=== PATIENT | male | born 1985 | race Caucasian/White ===

== ENCOUNTER 2018-08-14 16:04 | Outpatient (REF) | payer BC, SELFPAY ==
[2018-08-14 21:06] LABS: Absolute Basophil Count 0.01 k/cumm (0.0-0.2); Absolute Eosinophil Count 0.05 k/cumm (0.0-0.7); Absolute Lymphocyte Count 1.59 k/cumm (1.2-3.4); Absolute Monocyte Count 0.53 k/cumm (0.11-0.7); Absolute Neutrophil Count 2.43 k/cumm (1.2-6.7); Basophils % 0.2; Eosinophils % 1.1; HCT 40.5 % (40.0-50.0); HGB 13.9 g/dL (13.5-17.5); Lymphocytes % 34.5; Mean Corp. HGB Concentration 34.3 g/dL (32.0-36.0); Mean Corpuscular Hemoglobin 29.4 pg (27.0-33.0); Mean Corpuscular Volume 85.8 fL (80-95); Mean Platelet Volume 10.4 fL (8.0-11.0); Monocytes % 11.5; Neutrophils % 52.7; Platelet Count 165 x1000/uL (130-400); RBC 4.72 m/cumm (4.50-6.00); RBC Distribution Width 12.1 % (11.8-14.1); White Blood Cell Count 4.61 k/cumm (4.4-10.8)
[2018-08-14 21:15] LABS: ALT 34 U/L (12-78); AST 25 U/L (15-37); Albumin 4.3 g/dL (3.4-5.0); Alkaline Phosphatase 65 U/L (46-116); Anion Gap 10.2 mmol/L (3-11); BUN 18 mg/dL (7-18); Bilirubin, Total 0.2 mg/dL (0.2-1.0); CO2 26.8 mmol/L (21.0-32.0); CREATININE 0.91 mg/dL (0.70-1.30); Chloride 105 mmol/L (98-107); Glucose 96 mg/dL (70-100); Lipase 103 U/L (73-393); Potassium 3.9 mmol/L (3.5-5.1); Sodium 142 mmol/L (136-145)
[2018-08-14 21:23] LABS: Calcium 8.9 mg/dL (8.5-10.1)
[2018-08-16 11:59] LABS: IgA 118 mg/dL (85-499); Interpretation SEE COMMENTS; Tissue Transglutaminase IgA <1.2 U/mL (<4.0)
== END 2018-08-14 16:24 ==
LOC: NCHCN 16:04
PROVIDERS: PCP Internal Medicine; Visit Provider Internal Medicine
DX: R10.84 Generalized abdominal pain (principal); R19.4 Change in bowel habit; R14.0 Abdominal distension (gaseous)
CPT/HCPCS: 80053; 82784; 83516; 83690; 85025

== ENCOUNTER 2018-08-15 13:43 | Outpatient (REF) | payer BC, SELFPAY | END 2018-08-15 14:03 | LOC: LBN 13:43 | PROVIDERS: PCP Internal Medicine; Visit Provider Internal Medicine | DX: R19.4 Change in bowel habit (principal); R14.0 Abdominal distension (gaseous); R10.84 Generalized abdominal pain | CPT/HCPCS: 82272; 82710; 83630 ==

== ENCOUNTER 2018-12-18 12:02 | Outpatient (REF) | payer BC, SELFPAY | END 2018-12-18 12:22 | LOC: LBN 12:02 | PROVIDERS: PCP Internal Medicine | DX: R10.9 Unspecified abdominal pain (principal); G89.29 Other chronic pain; K58.9 Irritable bowel syndrome, unspecified | CPT/HCPCS: 87324 ==

== ENCOUNTER 2018-12-21 16:12 | Outpatient (REF) | payer BC, SELFPAY | END 2018-12-21 16:32 | LOC: LBO 16:12 | PROVIDERS: PCP Internal Medicine | DX: R10.9 Unspecified abdominal pain (principal); G89.29 Other chronic pain; K58.9 Irritable bowel syndrome, unspecified | CPT/HCPCS: 87329 ==

== ENCOUNTER 2019-07-13 12:18 | Emergency (ER) | payer BC, SELFPAY ==
--- NOTE | 2019-07-13 12:20 | W.ED.GENAD ---
Discharge Plan Disposition Patient Disposition: HOME Condition: Improving Discharge Details Chief Complaint: Headache Clinical Impression: Migraine Primary Care Provider: Ronak Quiroz ED Provider: Amira Pabon Home Meds and New Rx's Prescriptions: Continued cyclobenzaprine 10 MG tablet 1 tab PO PRN PRNRF: 0 ibuprofen [Advil] 200 MG tablet 1 tab PO PRN PRNRF: 0 multivitamin 1 EACH tablet 1 tab PO DAILY RF: 0 fluticasone propionate [Flonase Allergy Relief] 50 mcg/actuation [place],Suspension 1 spray INTRANASAL DAILY RF: 0 amitriptyline 10 mg Tablet 10 mg PO HS RF: 0 amoxicillin-pot clavulanate [Augmentin] 875-125 mg Tablet 1 tab PO BID RF: 0 sumatriptan succinate [Imitrex] 50 mg Tablet 50 mg PO PRN PRNRF: 0 prochlorperazine maleate 5 mg Tablet 5 mg PO PRN PRNRF: 0 Discharge Instructions Instructions: Migraine Headache (ED) Additional Instructions: Drink plenty of fluids and get plenty of rest. Alternate tylenol and motrin as needed and directed for pain. Take your Imitrex and Compazine that you have at home as needed and directed. Follow-up with your primary care doctor in 1 week. Return to the emergency department with any worsening or new concerning symptoms. Discharge Data Discharge Physician: Amira Pabon Medical Decision Making 1230 -- 34-year-old male with a history of IBS and migraines presents for worsening migraine over the past week. He had been taking Augmentin until yesterday for a possible sinus infection which is now near resolved. Patient appears uncomfortable. He was able to ambulate back to the room wearing sunglasses. His vitals are within normal limits. He has no focal deficits. He has bilateral sinus tenderness. This patient has a history of migraines and states this feels similar to his baseline, do not see an indication for imaging. Will place an IV, fluids, steroids, Compazine, Benadryl and Toradol and reassess. 1345 --patient reassessed --states he feels better but still with some mild headache. Will give another liter and reassess. 1500 --patient reassessed --he feels much better and he is requesting to go home. Patient appears much more comfortable. Patient was able to ambulate to the bathroom and appeared in no acute distress. He was given Compazine to go. He has Imitrex at home. Advised to follow up with the primary care doctor for re-evaluation. Usual and customary return precautions given prior to discharge. Medical Records Medical records reviewed: Yes I reviewed the patient's medical records. HPI General Mode of arrival: ambulatory. Date/Time Provider Initiated Documentation: 07/13/19 12:19. Limitations to Documentation: no limitations. Information obtained by: patient. HPI Narrative: Patient is a 34-year-old male with a history of migraines who presents with diffuse throbbing headache for the past week. Patient states for the past month he had sinus congestion, sinus pain and green nasal discharge which is now improving. He called his primary care doctor's office who called in Augmentin for him 5 days ago which he had been taking until yesterday. He states he stopped taking these medications due to his worsening headache and nausea. He states his sinus pressure then developed into worsening pain behind both of his eyes which then progressed to a migraine. He states once he has orbital pain associated with his headaches he usually develops a migraine. He states this feels consistent with his usual migraine. He admits to photophobia, phonophobia and nausea but denies any vomiting. He admits to dizziness. He denies any known fever, recent travel, exposure to recent travel, chest pain, shortness of breath, abdominal pain. His PCP office called in Imitrex and Compazine last night of which she is taken a few doses without relief. Last dose of Imitrex and Compazine this morning. Patient was seen at the PCP office today for his symptoms and was referred here for further evaluation and treatment. Related Data Home Medications Medication Instructions Recorded Confirmed cyclobenzaprine 1 tab PO PRN PRN 08/23/14 07/24/17 ibuprofen [Advil] 1 tab PO PRN PRN 08/23/14 07/24/17 multivitamin 1 tab PO DAILY 07/24/17 07/24/17 amitriptyline 10 mg PO HS 07/13/19 07/13/19 amoxicillin-pot clavulanate 1 tab PO BID 07/13/19 07/13/19 [Augmentin] fluticasone propionate [Flonase 1 spray INTRANASAL DAILY 07/13/19 07/13/19 Allergy Relief] prochlorperazine maleate 5 mg PO PRN PRN 07/13/19 07/13/19 sumatriptan succinate [Imitrex] 50 mg PO PRN PRN 07/13/19 07/13/19 Allergies Allergy/AdvReac Type Severity Reaction Status Date / Time No Known Allergies Allergy Unverified 07/13/19 12:28 Review of Systems All systems reviewed & are unremarkable except as noted in HPI and below Constitutional Constitutional: Reports as per HPI, Denies chills, Denies fever(s) and Reports headache(s) Eyes Eyes: Denies blurry vision and Reports photophobia ENT Ears, Nose, Mouth, and Throat: Denies dizziness, Reports headache(s), Denies sore throat and Denies throat swelling Cardiovascular Cardiovascular: Denies chest pain and Denies dyspnea Respiratory Respiratory: Denies cough and Denies dyspnea Gastrointestinal Gastrointestinal: Denies abdominal pain, Denies diarrhea, Reports nausea and Denies vomiting Genitourinary Genitourinary: Denies hematuria and Denies dysuria Musculoskeletal Musculoskeletal: Denies back pain and Denies numbness Integumentary/Breasts Skin/Breast: Denies lesions and Denies rash Neurologic Neurologic: Denies dizziness, Reports headache(s), Denies localized weakness and Denies numbness Allergic/Immunologic Allergic/Immunologic: Denies throat swelling [facility] Medical History (Updated 07/13/19 @ 13:57 by Amira Pabon DO) Allergic rhinitis (Acute) History of IBS (Acute) Migraine (Chronic) Social History Smoking/Tobacco Use Status: Never Drug use: Never Do you feel safe in your relationship?: Yes Exam Const General: cooperative, healthy appearing and uncomfortable Orientation: alert, awake and oriented x3 HENMT Head: normal to inspection Ears: hearing grossly normal bilaterally, external ears normal and TM's normal bilaterally General nose exam: external nose normal Face and sinus: sinus tenderness frontal (bilateral) and maxillary (bilateral) Mouth: oral mucosae normal Teeth and gingiva: dentition normal Throat: posterior oropharynx normal Eyes General: appearance normal, both eyes and all related structures Eyelids: eyelids normal Pupils: PERRL EOM: EOM intact bilaterally Neck Neck: normal visual inspection Lymphatic: no lymphadenopathy noted Chest Chest: normal inspection of the chest Resp Effort & Inspection: normal respiratory effort and able to speak in complete sentences Auscultation: clear to auscultation bilaterally Cardio Rate: regular rate Rhythm: regular rhythm GI Inspection: normal to inspection Palpation: soft, not firm, no guarding, no hepatosplenomegaly, no masses and nontender Auscultation: normal bowel sounds Back/Spine/Pelvis Back: no CVA tenderness Skin General skin exam: no rashes or lesions noted Neuro General: patient alert, patient awake and patient oriented x3 Cranial Nerves: CN's II-XI intact bilaterally Cognition: normal cognition Speech: speech normal Gait: normal gait Motor: muscle tone normal throughout and strength 5/5 throughout Sensory Exam: no sensory deficits noted Extrem General: normal to inspection, full ROM and capillary refill normal Psych Appearance: grossly normal Mental Status: mental status grossly normal Speech and Movement: speech and movement normal Affect: normal affect Thought Process: normal
[2019-07-13 12:23] VITALS: BP 125/78; PULSE 63; RESP 16; TEMP 36.6; O2SAT 100
[2019-07-13] MEDS: diphenhydrAMINE 50 MG/ML VIAL 25 MG IVP (13:10)
[2019-07-13] MEDS: Dexamethasone 10 MG/ML VIAL IVP (13:10)
[2019-07-13] MEDS: Prochlorperazine 10 MG/2 ML VIAL IVP (13:11)
[2019-07-13] MEDS: Ketorolac 30 MG/ML VIAL IVP (13:11)
[2019-07-13] MEDS: Normal Saline 1,000 ML 1000 ML IV ×2 (13:12→14:15)
[2019-07-13] MEDS: Prochlorperazine 10 MG TAB 30 MG PO (15:14)
== END 2019-07-13 15:23 | disposition home or self-care (01) ==
LOC: ER 15:20
PROVIDERS: Emergency Provider Physician Assistant; PCP Internal Medicine
DX: G43.909 Migraine, unspecified, not intractable, without status migrainosus (principal)
CPT/HCPCS: 96361; 96374; 96375; 99284; J0780; J1100; J1200; J1885

== ENCOUNTER 2020-05-02 14:40 | Outpatient (REF) | payer OTHER, SELFPAY ==
[2020-05-02 13:30] LABS: HCT 42.3 % (40.0-50.0); HGB 14.5 g/dL (13.5-17.5); MCH 29.8 pg (27.0-33.0); MCHC 34.3 % (32.0-36.0); MCV 86.9 fL (80-95); MPV 10.2 fL (8.0-11.0); Platelet Count 172 10^3/uL (130-400); RBC 4.87 10^6/uL (4.36-5.78); RDW 11.5 % (11.8-14.1); RDW-SD 36.1 fL; WBC 3.99 10^3/uL (4.4-10.8)
[2020-05-05 12:49] LABS: Albumin 65.1 % (55.8-66.1); Total Protein 7.3 g/dL (6.3-8.2)
[2020-05-05 14:34] LABS: ANA Interpretation Negative (Negative)
[2020-05-06 12:11] LABS: RNP Ab, IgG 1.9 Units (<20.0)
== END 2020-05-02 15:00 ==
LOC: NCHCN 14:40
PROVIDERS: PCP Internal Medicine; Visit Provider Internal Medicine
DX: L30.8 Other specified dermatitis (principal); R20.8 Other disturbances of skin sensation
CPT/HCPCS: 85027; 84165; 86038; 86235

== ENCOUNTER 2020-05-12 12:57 | Outpatient (REF) | payer OTHER, SELFPAY ==
[2020-05-13 22:07] LABS: Calprotectin <15.6 mcg/g
[2020-05-14 16:02] LABS: Pancreatic Elastase, F 162 mcg/g
== END 2020-05-12 13:17 ==
LOC: LBN 12:57
PROVIDERS: PCP Internal Medicine; Visit Provider Internal Medicine Gastroenterology
DX: R19.7 Diarrhea, unspecified (principal)
CPT/HCPCS: 82656; 83993

== ENCOUNTER 2020-12-30 21:05 | Emergency (ER) | payer OTHER, SELFPAY ==
[2020-12-30] VITALS (9 sets, daily range): BP systolic 105–167; BP diastolic 48–81; PULSE 83–105; RESP 16–20; TEMP 36.6; O2SAT 86–100
--- NOTE | 2020-12-30 21:15 | DI.CT_ITS ---
Exam(s) CT ABDOMEN PELVIS W EXAM: CT ABDOMEN PELVIS W CLINICAL HISTORY: vomiting, generalized abdominal pain, hematemasis. TECHNIQUE: Imaging Protocol: Axial computed tomography images with coronal and sagittal reformatted images were created and reviewed CONTRAST MATERIAL: Intravenous: Omnipaque 100cc Oral: None COMPARISON: No exams were available for comparison FINDINGS: VISUALIZED LUNG BASES: No nodules nor pleural effusions evident. ABDOMEN: There is no ascites. LIVER: There are no focal hepatic lesions evident . GALLBLADDER/BILIARY: Gallbladder is mildly distended. There are no obvious calcified gallstones evid ent nor gallbladder wall edema nor pericholecystic fluid. CBD is not dilated. PANCREAS: No evidence of pancreatic mass nor dilatation of the pancreatic duct. SPLEEN: Spleen size is upper normal. Splenic and portal veins are patent. ADRENALS: There are no significant adrenal masses. KIDNEYS:No cysts evident. No solid renal masses. No calculi nor hydronephrosis.. ABDOMINAL AORTA: Abdominal aorta is not enlarged. LYMPH NODES:There is no retroperitineal nor paraaortic adenopathy. ABDOMINAL WALL: No evidence of significant anterior abdominal wall hernia. GI: There is abnormal prominence and generalized mural thickening throughout the proximal and mid sma ll bowel loops consistent with element of enteritis. No obvious bowel obstruction. PELVIS: GI: Appendix is difficult to identify but there is no obvious acute appendicitis. The cecum is lying quite low in the pelvis making identification of the appendix somewhat difficult.No evidence of sigm oid diverticulitis. LYMPH NODES: There is no intrapelvic nor inguinal adenopathy. REPRODUCTIVE: Prostate not enlarged URINARY BLADDER: No calculi nor obvious masses evident OSSEOUS: No significant osseous lesions. Limbus vertebra anterosuperior level of L5. IMPRESSION: 1. Main finding here is a diffuse abnormal appearance of small bowel loops consistent with enteritis. This predominantly involves the proximal and mid level small-bowel loops. Testing for celiac disea se and other forms of enteritis including phlegm Linwood bowel disease recommended. GI consultation r ecommended 2. Mildly distended gallbladder. No obvious gallstones nor gallbladder wall edema. CBD is not dilat ed. If clinically indicated this could be further studied with gallbladder ultrasound. 3. There is no ascites. This study 1st read by [facility] RADIATION DOSE DELIVERED: 531.67mGy.cm Total DLP DATA REPOSITORY: All CT scans at this facility are submitted to the National Radiology Data Registry (NRDR) Dose Index Registry (DIR) with the [employer] (A[employer]). RADIATION OPTIMIZATION: All CT scans at this facility use at least one of these dose optimization te chniques: automated exposure control; mA and/or kV adjustment per patient size (includes targeted exa ms where dose is matched to clinical indication); or iterative reconstruction.
--- NOTE | 2020-12-30 21:15 | DI.CT_ITS ---
Exam(s) CT HEAD WO EXAM: CT HEAD WO CLINICAL HISTORY: headache, vomiting, r/o mass. TECHNIQUE: Imaging Protocol: Axial computed tomography images with coronal and sagittal reformatted images were created and reviewed COMPARISON: No exams were available for comparison FINDINGS: There are no skull fractures nor fluid in the visualized paranasal sinuses. There is no evidence of intracranial hemorrhage, mass effect, or shift of midline structures. There are no extra-axial fluid collections. The ventricles are not enlarged or shifted and there is no blo od within the ventricular system nor within the basal cisterns. IMPRESSION: No acute intracranial findings on this noninfused CT scan of the brain. If clinically indicated follow-up MRI can be performed. RADIATION DOSE DELIVERED: 822.65mGy.cm Total DLP DATA REPOSITORY: All CT scans at this facility are submitted to the National Radiology Data Registry (NRDR) Dose Index Registry (DIR) with the [employer] (ACR). RADIATION OPTIMIZATION: All CT scans at this facility use at least one of these dose optimization te chniques: automated exposure control; mA and/or kV adjustment per patient size (includes targeted exa ms where dose is matched to clinical indication); or iterative reconstruction.
[2020-12-30] MEDS: Normal Saline 1,000 ML 1000 ML IV (22:15)
--- NOTE | 2020-12-30 22:21 | ED.GENADUL_ITS ---
Discharge Plan Disposition Patient Disposition: HOME Condition: Good Discharge Details Clinical Impression: Diarrhea, Nausea & vomiting, Headache Primary Care Provider: Ronak Quiroz ED Provider: Rex Hargrove Home Meds and New Rx's Prescriptions: Continued cyclobenzaprine 10 MG tablet 1 tab PO PRN PRNRF: 0 ibuprofen [Advil] 200 MG tablet 1 tab PO PRN PRNRF: 0 multivitamin 1 EACH tablet 1 tab PO DAILY RF: 0 fluticasone propionate [Flonase Allergy Relief] 50 mcg/actuation [place],Suspension 1 spray INTRANASAL DAILY RF: 0 amitriptyline 10 mg Tablet 10 mg PO HS RF: 0 amoxicillin-pot clavulanate [Augmentin] 875-125 mg Tablet 1 tab PO BID RF: 0 sumatriptan succinate [Imitrex] 50 mg Tablet 50 mg PO PRN PRNRF: 0 prochlorperazine maleate 5 mg Tablet 5 mg PO PRN PRNRF: 0 Discharge Instructions Instructions: Acute Diarrhea (ED) Additional Instructions: At this time your CAT scan shows evidence of enteritis, which is likely from a mild virus or your irritable bowel syndrome. Please drink plenty of fluids and stay well-hydrated. Please take the Zofran that you have been given as needed for nausea. Once you have a stool sample please bring it back in for analysis. If you notice any worsening of your symptoms, or any new symptoms such as vomiting, diarrhea, fever, chills, shortness of breath, chest pain, numbness, weakness, or fainting , please return immediately to the emergency department for reevaluation. Please follow up with your primary care provider as soon as possible for reassessment and reevaluation. As always, it was a pleasure participating in your medical care today. Referrals: Ronak Quiroz MD [Primary Care Provider] - Medical Decision Making 35-year-old male with a past medical history of irritable bowel syndrome, migraine headaches, allergic rhinitis, presents today for evaluation of headache and abdominal pain in conjunction with vomiting diarrhea and a small amount of hematemesis. Patient states that at 230 this afternoon he had a mild headache that came on over 30 minutes to an hour. About half an hour later he had some nausea and vomiting 1 hour later he had some diarrhea. No blood was noted in the diarrhea, but small speckling the blood was noted in the vomiting. He denies any fevers, but does state that his 1-year-old child has had diarrhea since Tuesday. He is not vaccinated against Covid. He denies any close contact with Covid. 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 Patient states that the abdominal pain that is present is generalized and achy in nature. He states that it is slightly atypical for his IBS that pain like that. The patient denies any headache red flags of worst headache of life, thunderclap headache, neck pain, fever, chills, concerning family history of polycystic kidney disease, Marfan syndrome, Chitra-Danlos syndrome, abdominal aortic aneurysm, aortic dissection, or intracranial aneurysm. Patient has not been on any antibiotics recently. He denies any recent foreign travel or camping. Physical exam demonstrates mild tenderness in the lower abdomen, no acute surgical abdomen on exam. Dry mucous membranes, normal mid neurologic exam, no evidence of meningeal signs. Differential is highest for migraine headache as the patient states that this headache is nearly identical to his previous migraines, however the patient has not had any imaging for over 11 years. I do feel that CT imaging is indicated in this scenario. Abdominal pain I am concerned for potential colitis, will get a CT scan of the abdomen to rule out acute process. 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 We will test for Covid 12:44 AM Patient's laboratory work-up has returned, relatively unremarkable, no white count bandemia or significant left shift. Electrolytes normal. BUN slightly high suggesting dehydration. Lipase normal, Covid test negative. CT scan shows no acute process aside from mild enteritis, CT scan of the head negative for tumor or other significant abnormality. On reassessment after 2 L of fluid patient is feeling much better. He feels comfortable going home. Unfortunately we are not able to collect stool samples, we will send him home with stool sample study for outpatient lab slip. Repeat abdominal exam shows no evidence of an acute surgical abdomen. Discussed red flags which to return. Relayed findings in case with both mother and . I have extensively reviewed the treatment plan and discharge instructions with the patient. I have addressed all patient concerns at this time. The patient was made aware of what symptoms to monitor for that would warrant a return to the emergency department. Discussed the plan with the patient, they demonstrate verbal understanding and agreement with our assessment and plan at this time. The documentation in this chart was dictated using [employer] dictation software. Please excuse any dictation errors. FINDINGS: Brain: Normal. No hemorrhage. Unremarkable white matter. No mass effect. Cerebral ventricles: No ventriculomegaly. Paranasal sinuses: Visualized sinuses are unremarkable. No fluid levels. Mastoid air cells: Visualized mastoid air cells are well aerated. Bones/joints: Unremarkable. No acute fracture. Soft tissues: Unremarkable. IMPRESSION: No acute intracranial abnormality. Thank you for allowing us to participate in the care of your patient. Dictated and Authenticated by: Luis Daniel Leon MD 12/30/2020 11:23 PM Eastern Time ([place] & [place]) FINDINGS: Liver: No hepatic masses. Gallbladder and bile ducts: Mildly distended gallbladder with no calcified stones and no inflammatory changes. No significant biliary dilation or radiopaque stones in the biliary tree. Pancreas: No ductal dilation. No masses. Spleen: No splenomegaly or focal lesions. Adrenal glands: No mass. Kidneys and ureters: No hydronephrosis. No renal masses. Stomach and bowel: Normal CT appearance of the stomach. Normal CT appearance of the duodenum. Fluid-filled loops of small bowel without pathologic dilation. Minor mucosal hyperemia is possible in the jejunum along with mild prominence of the mucosa. No transition points are seen. Moderate amount of stool in the colon with no colitis or significant diverticular disease. Appendix: Normal morphology of the appendix. The appendix is located along the left aspect of the pelvis due to somewhat low and medialized positioning of the cecum Intraperitoneal space: No free air. No significant fluid collection. Vasculature: No abdominal aortic aneurysm. Lymph nodes: No significantly enlarged lymph nodes. Urinary bladder: Unremarkable as visualized. Reproductive: Unremarkable as visualized. Bones/joints: Minor congenital appearing deformity anterior superior L4 endplate. L5 is transitional. No acute fracture or subluxation. Soft tissues: No suspicious lesions. IMPRESSION: 1. A minor jejunal enteritis is possible in the right clinical setting. No obstruction. 2. Incidental findings as described. Thank you for allowing us to participate in the care of your patient. Dictated and Authenticated by: Sakina Almazan MD 12/31/2020 12:01 AM Eastern Time ([place] & [place]) HPI General Date/Time Provider Initiated Documentation: 12/30/20 21:19 . HPI Narrative: 35-year-old male with a past medical history of irritable bowel syndrome, migraine headaches, allergic rhinitis, presents today for evaluation of headache and abdominal pain in conjunction with vomiting diarrhea and a small amount of hematemesis. Patient states that at 230 this afternoon he had a mild headache that came on over 30 minutes to an hour. About half an hour later he had some nausea and vomiting 1 hour later he had some diarrhea. No blood was noted in the diarrhea, but small speckling the blood was noted in the vomiting. He denies any fevers, but does state that his 1-year-old child has had diarrhea since Tuesday. He is not vaccinated against Covid. He denies any close contact with Covid. 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 Patient states that the abdominal pain that is present is generalized and achy in nature. He states that it is slightly atypical for his IBS that pain like that. The patient denies any headache red flags of worst headache of life, thunderclap headache, neck pain, fever, chills, concerning family history of polycystic kidney disease, Marfan syndrome, Chitra-Danlos syndrome, abdominal aortic aneurysm, aortic dissection, or intracranial aneurysm. Patient has not been on any antibiotics recently. He denies any recent foreign travel or camping. Related Data Home Medications Medication Instructions Recorded Confirmed cyclobenzaprine 1 tab PO PRN PRN 08/23/14 07/24/17 ibuprofen [Advil] 1 tab PO PRN PRN 08/23/14 07/24/17 multivitamin 1 tab PO DAILY 07/24/17 07/24/17 amitriptyline 10 mg PO HS 07/13/19 07/13/19 amoxicillin-pot clavulanate 1 tab PO BID 07/13/19 07/13/19 [Augmentin] fluticasone propionate [Flonase 1 spray INTRANASAL DAILY 07/13/19 07/13/19 Allergy Relief] prochlorperazine maleate 5 mg PO PRN PRN 07/13/19 07/13/19 sumatriptan succinate [Imitrex] 50 mg PO PRN PRN 07/13/19 07/13/19 Allergies Allergy/AdvReac Type Severity Reaction Status Date / Time No Known Allergies Allergy Unverified 12/30/20 21:24 General Stated Complaint: Nausea/Vomit/Diar AZALEA: 3 Review of Systems All systems reviewed & are unremarkable except as noted in HPI and below PFSH Medical History Allergic rhinitis History of IBS Migraine Social History Smoking/Tobacco Use Status: Never Smoking risk assessment performed?: Yes Drug use: Never Do you feel safe in your relationship?: Yes Exam Narrative Exam Narrative: 1.Const: Well-nourished, Well-developed, appearing stated age 2.Eyes: PERRL, no conjunctival injection, and symmetrical lids. 3.ENT: Atraumatic external nose and ears. Dry MM. Neck: Symmetric, trachea midline, No thyromegaly. Patient demonstrates good movement of cervical neck. There is no nuchal rigidity, no nuchal tenderness. Patient is able to flex the neck without any difficulty or significant pain. Negative Kernig's and Brudzi nski sign. 4.CVS: +S1/S2, No murmurs or gallops. Peripheral pulses 2+ and equal in all extremities. Brisk capillary refill in all extremities. 5.RESP: Unlabored respiratory effort. Clear to auscultation bilaterally. No wheezes rales or rhonchi 6.GI: Soft, nondistended, no guarding or rebound, mild generalized tenderness throughout the lower abdomen. 7.MSK: Normocephalic/Atraumatic, Extremities w/o deformity or ttp No cyanosis or clubbing, Normal movement of all extremities 8.Skin: Warm, Dry. No rashes or lesions. 9.Neuro: dean of graduate studies II-XII grossly intact. Sensation grossly intact, no focal neurologic deficits. All 6 cardinal planes of vision are fully intact. No evidence of rotatory or vertical nystagmus. The patient demonstrated a normal [id number], good dexterity. There was no evidence of dysdiadochokinesia. Patient was able to ambulate without difficulty. There was no wide-based gait. Romberg testing was normal. [id number] testing was normal. Sensation was intact bilaterally as well as muscle strength bilaterally for all extremities. Patient was able to verbalize butter cup with no slurring, or miss pronunciation. 10.Psych: (AAO) x3. Appropriate mood and affect Course Vital Signs Vital signs: Vital Signs Temperature 36.6 C 12/30/20 21:17 Pulse 83 12/30/20 21:17 Respiratory Rate 20 12/30/20 21:17 Blood Pressure 117/52 L 12/30/20 21:17 Pulse Oximetry 100 12/30/20 21:17 Temperature 36.6 C 12/30/20 21:17 Temperature Source Skin 12/30/20 21:17 Pulse 83 12/30/20 21:17 Respiratory Rate 12/30/20 21:17 Blood Pressure 117/52 L 12/30/20 21:17 Blood Pressure Position Supine 12/30/20 21:17 Pulse Oximetry 100 12/30/20 21:17 Oxygen Delivery Method Room Air 12/30/20 21:17 Oxygen Flow Rate 0 12/30/20 21:17 Pain Level 6 12/30/20 21:17
[2020-12-30] MEDS: Ondansetron 4 MG/2 ML VIAL IVP (22:23)
[2020-12-30] MEDS: diphenhydrAMINE 50 MG/ML VIAL 25 MG IVP (22:24)
[2020-12-30] MEDS: methylPREDNISolone SUCC 125 MG VIAL IVP (22:26)
[2020-12-30] MEDS: Prochlorperazine 10 MG/2 ML VIAL IVP (22:29)
[2020-12-30] MEDS: Pantoprazole 40 MG VIAL IVP (22:31)
[2020-12-30] MEDS: Lactated Ringers 1,000 ML 1000 ML IV (22:37)
[2020-12-30 22:45] LABS: Source Nasal/Nares
[2020-12-30 22:46] LABS: Abs Immature Grans 0.02 10^3/uL (0.0-0.06); Absolute Basophil Count 0.03 10^3/uL (0.0-0.2); Absolute Monocyte Count 0.74 10^3/uL (0.1-0.8); Absolute Neutrophil Count 6.97 10^3/uL (1.2-6.7); Basophils % 0.4; HCT 46.5 % (40.0-50.0); Immature Grans % 0.2; Lymphocytes % 3.7; MCH 29.8 pg (27.0-33.0); MCHC 34.4 % (32.0-36.0); MCV 86.6 fL (80-95); MPV 10.2 fL (8.0-11.0); Monocytes % 9.2; Neutrophils % 86.5; Nucleated RBC 0 %; Platelet Count 154 10^3/uL (130-400); RBC 5.37 10^6/uL (4.36-5.78); RDW 11.3 % (11.8-14.1); RDW-SD 35.8 fL; WBC 8.06 10^3/uL (4.4-10.8)
[2020-12-30 22:58] LABS: Magnesium 1.8 mg/dL (1.8-2.4)
[2020-12-30 22:59] LABS: Lipase 110 U/L (73-393)
[2020-12-30 23:02] LABS: ALT 34 U/L (16-63); AST 22 U/L (15-37); Albumin 4.3 g/dL (3.4-5.0); Alkaline Phosphatase 57 U/L (46-116); BUN 21 mg/dL (7-18); Bilirubin, Total 0.7 mg/dL (0.2-1.0); Calcium 9.1 mg/dL (8.5-10.1); Chloride 107 mmol/L (98-107); Glucose 127 mg/dL (74-106); Potassium 3.6 mmol/L (3.5-5.1); Sodium 143 mmol/L (136-145); Total Protein 7.3 g/dL (6.4-8.2)
[2020-12-30] MEDS: Omnipaque 350 MG/ML 100 ML BTL IJ (23:20)
[2020-12-30] MEDS: Normal Saline Flush 10 ML SYR IVP (23:20)
--- NOTE | 2020-12-30 23:23 | DI.VRAD_ITS ---
PROCEDURE INFORMATION: Exam: CT Head Without Contrast Exam date and time: 12/30/2020 9:32 PM Age: 35 years old Clinical indication: Pain; Headache not specified; Patient HX: Headache, vomiting, R/O mass TECHNIQUE: Imaging protocol: Computed tomography of the head without contrast. Radiation optimization: All CT scans at this facility use at least one of these dose optimization techniques: automated exposure control; mA and/or kV adjustment per patient size (includes targeted exams where dose is matched to clinical indication); or iterative reconstruction. COMPARISON: No relevant prior studies available. FINDINGS: Brain: Normal. No hemorrhage. Unremarkable white matter. No mass effect. Cerebral ventricles: No ventriculomegaly. Paranasal sinuses: Visualized sinuses are unremarkable. No fluid levels. Mastoid air cells: Visualized mastoid air cells are well aerated. Bones/joints: Unremarkable. No acute fracture. Soft tissues: Unremarkable. IMPRESSION: No acute intracranial abnormality. Dictated and Authenticated by: Luis Daniel Leon MD. Ordering:CHRISTINA Goodman MD
[2020-12-30 23:42] LABS: COVID-19 PCR Negative (Negative)
[2020-12-31] VITALS: BP 122/51; PULSE 96; O2SAT 98
[2020-12-31 00:01] VITALS: O2SAT 98
--- NOTE | 2020-12-31 00:02 | DI.VRAD_ITS ---
PROCEDURE INFORMATION: Exam: CT Abdomen And Pelvis With Contrast Exam date and time: 12/30/2020 9:32 PM Age: 35 years old Clinical indication: Patient HX: Vomiting, generalized abdominal pain, hematemasis; Additional info: HX of ibs TECHNIQUE: Imaging protocol: Computed tomography of the abdomen and pelvis with contrast. Radiation optimization: All CT scans at this facility use at least one of these dose optimization techniques: automated exposure control; mA and/or kV adjustment per patient size (includes targeted exams where dose is matched to clinical indication); or iterative reconstruction. Contrast material: OMNIPAQUE 350; Contrast volume: 100 ml; Contrast route: INTRAVENOUS (IV); COMPARISON: No relevant prior studies available. FINDINGS: Liver: No hepatic masses. Gallbladder and bile ducts: Mildly distended gallbladder with no calcified stones and no inflammatory changes. No significant biliary dilation or radiopaque stones in the biliary tree. Pancreas: No ductal dilation. No masses. Spleen: No splenomegaly or focal lesions. Adrenal glands: No mass. Kidneys and ureters: No hydronephrosis. No renal masses. Stomach and bowel: Normal CT appearance of the stomach. Normal CT appearance of the duodenum. Fluid-filled loops of small bowel without pathologic dilation. Minor mucosal hyperemia is possible in the jejunum along with mild prominence of the mucosa. No transition points are seen. Moderate amount of stool in the colon with no colitis or significant diverticular disease. Appendix: Normal morphology of the appendix. The appendix is located along the left aspect of the pelvis due to somewhat low and medialized positioning of the cecum. Intraperitoneal space: No free air. No significant fluid collection. Vasculature: No abdominal aortic aneurysm. Lymph nodes: No significantly enlarged lymph nodes. Urinary bladder: Unremarkable as visualized. Reproductive: Unremarkable as visualized. Bones/joints: Minor congenital appearing deformity anterior superior L4 endplate. L5 is transitional. No acute fracture or subluxation. Soft tissues: No suspicious lesions. IMPRESSION: 1. A minor jejunal enteritis is possible in the right clinical setting. No obstruction. 2. Incidental findings as described. Dictated and Authenticated by: Sakina Almazan MD. Ordering:CHRISTINA Goodman MD
[2020-12-31 00:10] VITALS: O2SAT 98
[2020-12-31] MEDS: Ondansetron O.D.T. 4 MG TABEF, 3 TABS/BTL PO (00:43)
== END 2020-12-31 01:03 | disposition home or self-care (01) ==
PROVIDERS: Emergency Provider Student in an Organized Health Care Education/Training Program; PCP Internal Medicine
DX: R19.7 Diarrhea, unspecified (principal); R11.2 Nausea with vomiting, unspecified; R51.9 Headache, unspecified; R10.9 Unspecified abdominal pain
CPT/HCPCS: 36415; 80053; 83690; 87329; 87635; 96361; 96374; 96375; 99285; 70450; 74177; 83735; 85025; 99284; J0780; J1200; J2405; J2930; J3490

== ENCOUNTER 2023-09-20 21:32 | Emergency (ER) | payer OTHER, SELFPAY ==
[2023-09-20 21:35] VITALS: BP 127/78; PULSE 93; RESP 18; TEMP 37.2; O2SAT 97
--- NOTE | 2023-09-20 22:32 | ED.GENADUL_ITS ---
Discharge Plan Disposition Patient Disposition: Home Condition: Good Discharge Details Clinical Impression: Nausea, vomiting and diarrhea, Abdominal pain Primary Care Provider: Ronak Quiroz ED Provider: Hussein Veliz Hillman Meds and New Rx's Prescriptions: Continued rizatriptan 10 mg tablet See Rx Instructions PO .COMPLEX Qty: 14 0RF Rx Instructions: take 1 tab at onset of headache; if no relief may repeat 1 tab after at least 2 hrs; max = 3 tabs/24 hr PO multivitamin 1 EACH tablet 1 tab PO DAILY fluticasone propionate [Flonase Allergy Relief] 50 mcg/actuation [place],Suspension 1 spray INTRANASAL DAILY amitriptyline 10 mg Tablet 10 mg PO HS Discharge Instructions Instructions: Acute Nausea and Vomiting (ED), Abdominal Pain (ED) Additional Instructions: You were seen in the ED for diffuse abdominal pain, vomiting and diarrhea with associated migraine. Symptoms improved with fluids and medications. Laboratory studies and CT scan reassuring. Please follow-up with primary care in the next 1 to 2 weeks. Return to ED for any new or worsening pain, persistent vomiting, bloody diarrhea, fever, other concerns. Referrals: Ronak Quiroz MD [Primary Care Provider] - [facility] General Mode of arrival: ambulatory . Date/Time Provider Initiated Documentation: 09/20/23 22:32 . Limitations to Documentation: no limitations . Information obtained by: patient . HPI Narrative: Patient presents to ED with onset of abdominal pain this afternoon. Is more or less generalized with associated vomiting and diarrhea. Has history of irritable bowel syndrome but also reports that significant other had GI bug over the weekend. He has felt hot and chilled but never actually took a temperature. Has developed a migraine. Denies any chest pain, cough, shortness of breath. Denies any hematemesis or hematochezia. No prior abdominal surgeries. No back pain or urinary symptoms. Did go out for a run after work which seemed to make the pain worse. Related Data Home Medications Medication Instructions Recorded Confirmed multivitamin 1 tab PO DAILY 07/24/17 09/21/23 amitriptyline 10 mg tablet 10 mg PO HS 07/13/19 09/21/23 fluticasone propionate 50 1 spray intranasal DAILY 07/13/19 09/21/23 mcg/actuation nasal spray,suspension (Flonase Allergy Relief) rizatriptan 10 mg tablet See Rx Instructions PO .COMPLEX 05/22/22 09/21/23 #14 tabs Previous Rx's Medication Instructions Recorded rizatriptan 10 mg tablet See Rx Instructions PO .COMPLEX 05/22/22 #14 tabs Allergies Allergy/AdvReac Type Severity Reaction Status Date / Time No Known Allergies Allergy Unverified 09/21/23 00:57 General Stated Complaint: Abd Prob AZALEA: 3 Review of Systems Narrative: Per HPI Exam Narrative Exam Narrative: Const: Thin male in NAD. VS per triage. HEENT: NC/AT. Normal facial exam. Neck: Supple. Trachea midline. Lungs: Normal respiratory effort. Cor: RRR. Good radial pulses. GI: S/ND. Tender in the right upper quadrant with voluntary guarding. Neuro: A+O x 3. Normal speech, mentation, gait. Cranial nerves II - XII grossly intact. No gross motor or sensory deficit. Ext: No C/C/E. Course Vital Signs Vital signs: Vital Signs Temperature 99.0 F 09/20/23 21:35 Pulse 93 H 09/20/23 21:35 Respiratory Rate 18 09/20/23 21:35 Blood Pressure 127/78 09/20/23 21:35 Pulse Oximetry 97 09/20/23 21:35 Temperature 99.0 F 09/20/23 21:35 Temperature Source Skin 09/20/23 21:35 Pulse 93 H 09/20/23 21:35 Respiratory Rate 18 09/20/23 21:35 Respiratory Effort Normal 09/20/23 21:38 Blood Pressure 127/78 09/20/23 21:35 Pulse Oximetry 97 09/20/23 21:35 Oxygen Delivery Method Room Air 09/20/23 21:35 Oxygen Flow Rate 0 09/20/23 21:35 Medical Decision Making Patient presenting to ED with report of generalized abdominal pain, vomiting, diarrhea, migraine headache. Abdominal pain started first. He is fairly tender in the right upper quadrant with voluntary guarding. Does not really fit the profile for acute cholecystitis but this does need to be evaluated. Has had ED visits for similar presentations with history of migraine and irritable bowel syndrome. Could consider abdominal migraine. Doubt pancreatitis, hepatitis, bowel obstruction but will obtain labs and CT. IV established, fluids started, ketorolac and prochlorperazine given. Patient's laboratory studies with a normal CBC, chemistries, liver function. Urine with a significant amount of ketones and BUN a little elevated suggesting fair amount of vomiting prior to coming in. He is however feeling much better at this point in time. CT scan preliminary read per radiology with no acute abdominal pelvic pathology. Repeat abdominal exam is benign. Patient be discharged home to follow-up with primary care. Return precautions provided. Medical Records Medical records reviewed: Yes I reviewed the patient's medical records. Medical records narrative: ED visits for similar Lab Data Lab results reviewed: Yes I reviewed the patient's lab results. PFSH All Active Problems (Updated 09/21/23 @ 00:51 by Hussein Veliz MD) Abdominal pain (Acute) Nausea, vomiting and diarrhea (Acute) Headache (Acute) Nausea & vomiting (Acute) Diarrhea (Acute) Medical History Allergic rhinitis History of IBS Migraine Surgical History No significant past surgical history Social History Smoking/Tobacco Use Status: Never Smoking risk assessment performed?: Yes Alcohol Intake: never Drug use: Never Do you feel safe at home: Yes Do you feel safe in your relationship?: Yes
--- NOTE | 2023-09-20 22:45 | DI.CT_ITS ---
Exam(s) CT ABDOMEN PELVIS W EXAM: CT ABDOMEN PELVIS W CLINICAL HISTORY: RUQ abd pain/vomiting. TECHNIQUE: Imaging Protocol: Axial computed tomography images with coronal and sagittal reformatted images were created and reviewed CONTRAST MATERIAL: Intravenous: Omnipaque 350 Contrast volume:100 ml Oral: yes / no COMPARISON: CT CT ABDOMEN PELVIS W from 12/30/2020 FINDINGS: ABDOMEN and PELVIS: Lung Bases: No acute findings. Liver: Normal density. No suspicious mass. Gallbladder and biliary tract: No radiodense calculus. No biliary dilation. Pancreas: Normal density. No abnormal calcifications or inflammatory process. No evidence of mass. Spleen: Normal. Kidneys: Normal size, contour and axis. No radiodense stones. No obstructive uropathy. No suspicious masses seen. Adrenal glands: No masses seen. Vasculature: Abdominal aorta non-dilated. Soft tissues: Unremarkable. Bladder: No gross wall thickening. No calculi.No focal mass. Bowel: No obstruction. No bowel wall thickening. Appendix normal. The cecum projects posteriorly, low in the pelvis. The appendix is located on the left side of the low pelvis. Peritoneal cavity: No ascites. No focal collection. No mesenteric inflammatory response. Bones: Unremarkable for age. Variant limbus vertebra at L5. Reproductive organs: Unremarkable. Lymph nodes: No pathologically enlarged lymph nodes. IMPRESSION:: No acute abnormality in the abdomen or pelvis. RADIATION DOSE DELIVERED: 596.41mGy.cm Total DLP DATA REPOSITORY: All CT scans at this facility are submitted to the National Radiology Data Registry (NRDR) Dose Index Registry (DIR) with the [employer] ([employer]). RADIATION OPTIMIZATION: All CT scans at this facility use at least one of these dose optimization te chniques: automated exposure control; mA and/or kV adjustment per patient size (includes targeted exa ms where dose is matched to clinical indication); or iterative reconstruction.
[2023-09-20 22:47] VITALS: BP 130/78; PULSE 81; RESP 18; TEMP 36.9; O2SAT 100
[2023-09-20 23:01] LABS: Abs Immature Grans 0.02 10^3/uL (0.0-0.06); Absolute Basophil Count 0.02 10^3/uL (0.0-0.2); Absolute Lymphocyte Count 0.26 10^3/uL (1.2-3.4); Absolute Monocyte Count 0.52 10^3/uL (0.1-0.8); Basophils % 0.2 %; HCT 44.1 % (40.0-50.0); HGB 15.3 g/dL (13.5-17.5); Immature Grans % 0.2 %; Lymphocytes % 3.1 %; MCH 29.7 pg (27.0-33.0); MCHC 34.7 % (32.0-36.0); MCV 86 fL (80-95); MPV 9.8 fL (8.0-11.0); Monocytes % 6.3 %; Neutrophils % 90.2 %; Platelet Count 144 10^3/uL (130-400); RBC 5.15 10^6/uL (4.36-5.78); RDW 11.9 % (11.8-14.1); RDW-SD 37.5 fL; WBC 8.32 10^3/uL (4.4-10.8)
[2023-09-20] MEDS: Prochlorperazine 10 MG/2 ML VIAL IVP (23:02)
[2023-09-20] MEDS: Ketorolac 30 MG/ML VIAL IVP (23:02)
[2023-09-20] MEDS: Lactated Ringers 1,000 ML 1000 ML IV (23:02)
[2023-09-20 23:12] LABS: Lipase 63 U/L (16-77)
[2023-09-20 23:12] LABS: Bilirubin Negative (Negative); Blood Negative (Negative); Clarity Clear (Clear); Glucose Negative (Negative); Ketones >=160 mg/dL (Negative); Leukocyte Esterase Negative (Negative); Nitrite Negative (Negative); Urobilinogen 0.2 mg/dL (Up to 0.2); pH 8.5 (5-8)
[2023-09-20] MEDS: Normal Saline - Diluent 50 ML VIAL IJ (23:14)
[2023-09-20] MEDS: Omnipaque 350 MG/ML 100 ML BTL IJ (23:14)
[2023-09-20 23:15] LABS: ALT 39 U/L (16-63); AST 23 U/L (15-37); Albumin 4.4 g/dL (3.4-5.0); Alkaline Phosphatase 63 U/L (46-116); Anion Gap 9.1 mmol/L (3-11); BUN 26 mg/dL (7-18); Bilirubin, Total 0.9 mg/dL (0.2-1.0); CO2 26.9 mmol/L (21.0-32.0); CREATININE 1.1 mg/dL (0.70-1.30); Chloride 103 mmol/L (98-107); Estimated GFR 89.22 (mL/min/1.73m2); Glucose 114 mg/dL (74-106); Sodium 139 mmol/L (136-145); Total Protein 7.4 g/dL (6.4-8.2)
[2023-09-20] MEDS: Normal Saline Flush 10 ML SYR IVP (23:15)
--- NOTE | 2023-09-21 00:39 | DI.VRAD_ITS ---
PROCEDURE INFORMATION: Exam: CT Abdomen And Pelvis With Contrast Exam date and time: 09/20/2023 11:17 PM Age: 38 years old Clinical indication: Abdominal pain; Localized; Right upper quadrant (ruq); Patient HX: Ruq pain, vomiting TECHNIQUE: Imaging protocol: Computed tomography of the abdomen and pelvis with contrast. Radiation optimization: All CT scans at this facility use at least one of these dose optimization techniques: automated exposure control; mA and/or kV adjustment per patient size (includes targeted exams where dose is matched to clinical indication); or iterative reconstruction. Contrast material: OMNIPAQUE 350; Contrast volume: 100 ml; Contrast route: INTRAVENOUS (IV); COMPARISON: CT ABDOMEN PELVIS W 12/30/2020 11:09 PM FINDINGS: Liver: Normal. No mass. Gallbladder and bile ducts: Normal. No calcified stones. No ductal dilation. Pancreas: Normal. No ductal dilation. Spleen: Normal. No splenomegaly. Adrenal glands: Normal. No mass. Kidneys and ureters: Normal. No hydronephrosis. Stomach and bowel: Unremarkable. No obstruction. No mucosal thickening. Appendix: No evidence of appendicitis. Intraperitoneal space: Unremarkable. No free air. No significant fluid collection. Vasculature: Unremarkable. No abdominal aortic aneurysm. Lymph nodes: Unremarkable. No enlarged lymph nodes. Urinary bladder: Unremarkable as visualized. Reproductive: Unremarkable as visualized. Bones/joints: Anterior superior limbus L5 vertebral body. Soft tissues: Fat containing umbilical hernia. IMPRESSION: No acute intra-abdominal process. Dictated and Authenticated by: Emmanuel Lerma MD. Ordering:DANA Savage MD
== END 2023-09-21 01:25 | disposition home or self-care (01) ==
PROVIDERS: Emergency Provider Emergency Medicine; PCP Internal Medicine
DX: R10.30 Lower abdominal pain, unspecified (principal); R11.2 Nausea with vomiting, unspecified; R19.7 Diarrhea, unspecified
CPT/HCPCS: 36415; 80053; 83690; 96360; 99285; 74177; 81003; 85025; 99284; J0780; J1885; J3490